=== PATIENT | male | born 1975 ===

== ENCOUNTER 2024-05-27 13:50 | Inpatient (IN) | payer OTHER ==
[2024-05-27 15:20] LABS: BASOPHILS ABSOLUTE AUTO 0.1 K/mm3 (0.0-0.2); BASOPHILS PERCENT AUTO 0.8 % (0.0-1.0); EOSINOPHILS ABSOLUTE AUTO 0.1 K/mm3 (0.0-0.4); EOSINOPHILS PERCENT AUTO 0.5 % (0.0-6.0); HEMATOCRIT 38.8 % (42.0-52.0); HEMOGLOBIN 13.7 gm/dl (14.0-18.0); IMMATURE GRAN ABSOLUTE AUTO 0.17 K/mm3 (0.00-0.05); IMMATURE GRAN PERCENT AUTO 1.5 % (0.0-0.4); LYMPHOCYTES ABSOLUTE AUTO 0.7 K/mm3 (1.0-4.8); LYMPHOCYTES PERCENT AUTO 6.1 % (24.0-44.0); MEAN CORPUSCULAR HEMOGLOBIN 27.3 pg (28.0-32.0); MEAN CORPUSCULAR HGB CONC 35.3 g/dl (32.0-36.0); MEAN CORPUSCULAR VOLUME 77.3 fl (83.0-99.0); MONOCYTES ABSOLUTE AUTO 1.1 K/mm3 (0.0-0.8); MONOCYTES PERCENT AUTO 9.1 % (0.0-8.0); NEUTROPHILS ABSOLUTE AUTO 9.6 K/mm3 (1.8-7.7); RED BLOOD CELL COUNT 5.02 M/mm3 (4.52-5.90); WHITE BLOOD CELL COUNT,WBC 11.72 K/mm3 (3.9-11.3)
[2024-05-27 15:40] LABS: A/G RATIO 0.7 (1-2); ALBUMIN 2.8 g/dl (3.4-5.0); ANION GAP 21.3 (5-15); BILIRUBIN TOTAL 3.3 mg/dL (0.2-1.0); BUN/CREATININE RATIO 30.5 (14-18); CALCIUM 8.8 mg/dL (8.5-10.1); CREATININE 2.2 mg/dL (0.7-1.3); EST CRCL DRUG DOSING (CG) 39.3 mL/min; MAGNESIUM 2.2 mg/dL (1.8-2.4); POTASSIUM,K 4.3 mEq/L (3.5-5.1); PROTEIN TOTAL,TP 7.1 g/dl (6.4-8.2)
[2024-05-27 15:41] LABS: APPEARANCE,URINE SLT CLOUDY (Clear); BILIRUBIN,URINE NEGATIVE (Negative); COLOR,URINE YELLOW (Yellow); GLUCOSE,URINE NEGATIVE (Negative); KETONES,URINE NEGATIVE (Negative); LEUKOCYTE ESTERASE,URINE 1+ (Negative); NITRITE,URINE NEGATIVE (Negative); OCCULT BLOOD,URINE 1+ (Negative); PH,URINE 5.5 (5.0-8.0); PROTEIN,URINE 1+ (Negative); UROBILINOGEN,URINE 0.2 (0.2-1.0)
[2024-05-27 15:48] LABS: BACTERIA,URINE MODERATE /hpf (FEW); MUCUS,URINE FEW /hpf (FEW); SQUAMOUS EPITHELIAL CELLS,UR 0-5 /hpf (0-5)
[2024-05-27 16:13] LABS: PLATELET COUNT,PLT 50 K/mm3 (150-400)
[2024-05-27 16:34] LABS: HEMOGLOBIN A1C 7.5 %
[2024-05-27 16:36] LABS: LACTIC ACID 5.2 mmol/L (0.4-2.0)
[2024-05-27 16:58] LABS: INR 1.41; PROTHROMBIN TIME 14.6 SECONDS (9.7-12.0)
[2024-05-27] MEDS: Sodium Chloride 0.9% 1,000 ML IV SCH ×2 (17:10→18:09)
[2024-05-27] MEDS: cefTRIAXone 2 GM in Sodium Chloride 0.9% 100 ML IV ONE (17:11)
[2024-05-27 17:14] LABS: CORONAVIRUS COVID-19 NAA NEGATIVE (NEGATIVE); INFLUENZA A NAA NEGATIVE (NEGATIVE); RESPIRATORY SYNCYTIAL VIR NAA NEGATIVE (NEGATIVE)
[2024-05-27] MEDS ORDERED: Ondansetron 4 MG/2 ML SDV IVPUSH PRN (18:03)
[2024-05-27] MEDS: oxyCODONE 5 MG Tab PO ONE (18:07)
[2024-05-27] MEDS: Albumin 25% 12.5 GM in Premix Bag 1 BAG IV SCH (18:52)
[2024-05-27] MEDS: Sodium Chloride 0.9% 1,000 ML IV ONE (20:16)
[2024-05-27 22:22] LABS: ANION GAP 21.1 (5-15); BUN/CREATININE RATIO 34.4 (14-18); CALCIUM 8.3 mg/dL (8.5-10.1); CREATININE 1.8 mg/dL (0.7-1.3); EST CRCL DRUG DOSING (CG) 48.03 mL/min; POTASSIUM,K 4.1 mEq/L (3.5-5.1)
[2024-05-27] MEDS ORDERED: LORazepam 2 MG/ML SDV IVPUSH PRN (22:55)
[2024-05-28] MEDS: oxyCODONE 5 MG Tab PO PRN (00:23)
[2024-05-28 05:40] LABS: HEMATOCRIT 34.4 % (42.0-52.0); HEMOGLOBIN 12.1 gm/dl (14.0-18.0); MEAN CORPUSCULAR HEMOGLOBIN 26.9 pg (28.0-32.0); MEAN CORPUSCULAR HGB CONC 35.2 g/dl (32.0-36.0); MEAN CORPUSCULAR VOLUME 76.4 fl (83.0-99.0); PLATELET COUNT,PLT 43 K/mm3 (150-400); WHITE BLOOD CELL COUNT,WBC 8.07 K/mm3 (3.9-11.3)
[2024-05-28 05:49] LABS: A/G RATIO 0.7 (1-2); ALBUMIN 2.5 g/dl (3.4-5.0); BILIRUBIN TOTAL 4.3 mg/dL (0.2-1.0); BUN/CREATININE RATIO 35.6 (14-18); CALCIUM 8.2 mg/dL (8.5-10.1); CREATININE 1.6 mg/dL (0.7-1.3); EST CRCL DRUG DOSING (CG) 54.03 mL/min
[2024-05-28 06:36] LABS: INR 1.45
[2024-05-28] MEDS: Albumin 25% 12.5 GM in Premix Bag 1 BAG IV SCH (09:17)
[2024-05-28] MEDS: Lactulose Soln 10 GM/15 ML 30 ML UD Cup PO SCH (09:17)
[2024-05-28] MEDS: Pantoprazole 40 MG Tab.CR PO SCH (09:18)
[2024-05-28] MEDS: cefTRIAXone 2 GM in Sodium Chloride 0.9% 100 ML IV SCH (14:19)
[2024-05-28] MEDS: Piperacillin/Tazobactam 4.5 GM in Sodium Chloride 0.9% 100 ML IV ONE (15:30)
[2024-05-28] MEDS: VANCOmycin 2 GM/400 ML 2 GM in Premix Bag 1 BAG IV ONE (16:18)
[2024-05-28 16:22] LABS: LACTIC ACID 6.1 mmol/L (0.4-2.0)
[2024-05-28] MEDS: Sodium Chloride 0.9% 1,000 ML IV ONE (16:40)
[2024-05-28] MEDS: Piperacillin/Tazobactam 4.5 GM in Sodium Chloride 0.9% 100 ML IV SCH (19:42)
[2024-05-29 04:42] LABS: HEMOGLOBIN 11.6 gm/dl (14.0-18.0); MEAN CORPUSCULAR HEMOGLOBIN 27.8 pg (28.0-32.0); MEAN CORPUSCULAR HGB CONC 36.3 g/dl (32.0-36.0); MEAN CORPUSCULAR VOLUME 76.7 fl (83.0-99.0); PLATELET COUNT,PLT 47 K/mm3 (150-400); RED BLOOD CELL COUNT 4.17 M/mm3 (4.52-5.90)
[2024-05-29 04:58] LABS: INR 1.47; PROTHROMBIN TIME 15.2 SECONDS (9.7-12.0)
[2024-05-29 05:35] LABS: A/G RATIO 0.7 (1-2); ALBUMIN 2.4 g/dl (3.4-5.0); ANION GAP 13.7 (5-15); BILIRUBIN TOTAL 6.4 mg/dL (0.2-1.0); BUN/CREATININE RATIO 33.3 (14-18); CALCIUM 7.9 mg/dL (8.5-10.1); EST CRCL DRUG DOSING (CG) 72.04 mL/min; POTASSIUM,K 3.7 mEq/L (3.5-5.1); VANCOMYCIN RANDOM 6.8 ug/mL
[2024-05-29 05:40] LABS: CREATININE 1.2 mg/dL (0.7-1.3); PROTEIN TOTAL,TP 5.7 g/dl (6.4-8.2)
[2024-05-29] MEDS: Lactulose Soln 10 GM/15 ML 30 ML UD Cup PO SCH (08:04)
[2024-05-29 12:43] LABS: HAV AB IGM Negative (Negative); HBC IGM Negative (Negative); HEP B SURG AG Negative (Negative); HEP C AB BY CIA Negative (Negative); HEP C AB BY CIA INDEX 0.06 IV
[2024-05-29] MEDS: ceFAZolin 2 GM in Sodium Chloride 0.9% 50 ML IV SCH (13:16)
[2024-05-29] MEDS: fentaNYL 100 MCG/2 ML SDV IVPUSH PRN (13:39)
[2024-05-29] MEDS: Lactulose Soln 10 GM/15 ML 30 ML UD Cup PO ONE (17:21)
[2024-05-29 20:41] LABS: ANA BY ELISA, IGG W/RFX TO IFA None Detected (None Detected)
[2024-05-30 04:50] LABS: HEMATOCRIT 32.1 % (42.0-52.0); HEMOGLOBIN 11.4 gm/dl (14.0-18.0); MEAN CORPUSCULAR HEMOGLOBIN 27.1 pg (28.0-32.0); MEAN CORPUSCULAR HGB CONC 35.5 g/dl (32.0-36.0); MEAN CORPUSCULAR VOLUME 76.2 fl (83.0-99.0); NRBC ABSOLUTE 0.03 (0.00-0.02); NRBC PERCENT 0.2 % (0.0-0.2); PLATELET COUNT,PLT 60 K/mm3 (150-400); RED BLOOD CELL COUNT 4.21 M/mm3 (4.52-5.90); WHITE BLOOD CELL COUNT,WBC 17.03 K/mm3 (3.9-11.3)
[2024-05-30 05:15] LABS: INR 1.36; PROTHROMBIN TIME 14.1 SECONDS (9.7-12.0)
[2024-05-30 05:22] LABS: A/G RATIO 0.7 (1-2); ALBUMIN 2.2 g/dl (3.4-5.0); ANION GAP 13.2 (5-15); BILIRUBIN TOTAL 7.4 mg/dL (0.2-1.0); BUN/CREATININE RATIO 38.3 (14-18); CALCIUM 8.3 mg/dL (8.5-10.1); EST CRCL DRUG DOSING (CG) 72.04 mL/min; POTASSIUM,K 3.2 mEq/L (3.5-5.1)
[2024-05-30 05:33] LABS: CREATININE 1.2 mg/dL (0.7-1.3); PROTEIN TOTAL,TP 5.6 g/dl (6.4-8.2)
[2024-05-30 06:42] LABS: MITOCHONDRIAL AB 11.7 Units (0.0-24.9)
[2024-05-30] MEDS: Albumin 25% 12.5 GM in Premix Bag 1 BAG IV SCH (07:55)
[2024-05-30] MEDS: NS + KCl 20mEq/L 1,000 ML IV SCH (08:34)
[2024-05-30] MEDS: Insulin Lispro 100 Unit/ML 3 ML KwikPen SUBCUT SCH (08:42)
== END 2024-05-30 11:28 | DRG 871 ==
LOC: JD.ED 13:50 → JD.MS 17:42
PROVIDERS: ADMIT Internal Medicine; ATTEND Internal Medicine
DX: A41.01 Sepsis due to Methicillin susceptible Staphylococcus aureus (principal); I33.0 Acute and subacute infective endocarditis; K72.00 Acute and subacute hepatic failure without coma; R65.21 Severe sepsis with septic shock; N17.9 Acute kidney failure, unspecified; E87.1 Hypo-osmolality and hyponatremia; E87.20 Acidosis, unspecified; D50.9 Iron deficiency anemia, unspecified; E11.65 Type 2 diabetes mellitus with hyperglycemia; K70.30 Alcoholic cirrhosis of liver without ascites; Z79.899 Other long term (current) drug therapy
CPT/HCPCS: 0241U; 36415; 71045; 71045-26; 73100-26-LT; 73100-LT; 76705; 76705-26; 80048; 80053; 80074; 80202; 80307; 81001; 82140; 82947; 83036; 83605; 83690; 83735; 85025; 85027; 85610; 86038; 86381; 87040; 87077; 87086; 87088; 87154; 87186; 93005; 93010; 93306; 94760; 96365; 97162-GP; 99285; 99285-25; A9270-GY; J0690; J0696; J1815; J2543; J3010; J3372; J3480; J3490; J7030; P9047; U0002